=== PATIENT | female | born 1990 | race Hispanic/Latino ===

== ENCOUNTER 2022-02-03 01:02 | Emergency (ER) | payer SELFPAY ==
[2022-02-03 02:04] LABS: HEMATOCRIT 43.4 % (37.0-47.0); HEMOGLOBIN 13.6 g/dl (12.0-16.0); IMMATURE GRANULOCYTES 0.3 % (0.0-5.0); MEAN CELL VOLUME 90.8 fL CALC (80.0-100.0); MEAN CORPUSCULAR HGB 28.5 pG CALC (26.0-32.0); MEAN CORPUSCULAR HGB CONC 31.3 g/dL CAL (32.0-36.0); NEUT# 5.04 thou/uL (2.00-7.15); RED BLOOD COUNT 4.78 mill/uL (4.20-5.60); RED CELL DISTRI WIDTH 12.4 % (11.5-15.5)
[2022-02-03 02:17] LABS: ALBUMIN 4.6 g/dL (3.2-5.0); ALKALINE PHOSPHATASE 85 u/l (38-126); ANION GAP 16 (6-22 (CALC)); BILIRUBIN, TOTAL 0.7 mg/dL (0.0-1.4); BUN 9 mg/dL (7-17); BUN/CREATININE RATIO 18 (12-20 (CALC)); CARBON DIOXIDE 19 mmol/l (22-30); CHLORIDE 105 mmol/l (95-108); CREATININE 0.5 mg/dL (0.5-1.0); GFR FOR AFR.AMER. > 60 ML/MIN (>=60 (CALC)); GFR OTHER RACES > 60 ML/MIN (>=60 (CALC)); LIPASE 136 u/l (23-300); POTASSIUM 4.5 mmol/l (3.5-5.1); SGOT/AST 38 u/l (14-36); SODIUM 135 mmol/l (137-146); TOTAL PROTEIN 8.4 g/dL (6.3-8.2)
[2022-02-03] MEDS ORDERED: ZOFRAN4 MG/TAB PO (03:23)
[2022-02-03] MEDS ORDERED: DICYCLOMINE HCL20 MG PO (03:23)
[2022-02-03 03:29] VITALS: BP 142/93
== END 2022-02-03 03:43 | disposition home or self-care (01) | DRG 446 ==
LOC: ED 01:02
PROVIDERS: Internal Medicine
DX: K80.80 Other cholelithiasis without obstruction (principal); R11.10 Vomiting, unspecified